=== PATIENT | female | born 1975 | race Caucasian/White ===

== ENCOUNTER 2023-05-13 10:52 | Outpatient (CLI) | payer BC | END 2023-05-13 10:53 | disposition home or self-care (01) | LOC: RAD-FRANK 10:52 | PROVIDERS: ATTEND Nurse Practitioner Family | DX: M25.562 Pain in left knee (principal) ==

== ENCOUNTER 2023-09-21 12:04 | Outpatient (CLI) | payer BC | END 2023-09-21 12:05 | disposition home or self-care (01) | LOC: SCSMRI 12:04 | PROVIDERS: ATTEND Orthopaedic Surgery | DX: M25.562 Pain in left knee (principal); S83.232A Complex tear of medial meniscus, current injury, left knee, initial encounter; M23.92 Unspecified internal derangement of left knee; M25.462 Effusion, left knee; R93.0 Abnormal findings on diagnostic imaging of skull and head, not elsewhere classified | CPT/HCPCS: 70250 ==